=== PATIENT | female | born 1990 | race Caucasian/White ===

== ENCOUNTER 2020-12-26 08:02 | Inpatient (IN) | payer MEDICARE ==
[~2020-12-26] VITALS: Ht 152.4 cm; Wt 104.8 kg
--- NOTE | 2020-12-26 12:36 | EKG ---
[facility] [address] [facility] [place] [address] Signed Accelerated Junctional rhythm Abnormal ECG No previous ECGs available Confirmed by LAMBERTO CRAIN MD ([id number]) on 12/26/2020 12:36:16 PM Electronically Signed By: LAMBERTO CRAIN MD 12/26/20 1236 PATIENT NAME: DIANA ANAYA Electrocardiogram DATE OF : 89 PHYSICIAN: LAMBERTO CRAIN MD REPORT #: [id number] REPORT IS CONFIDENTIAL AND NOT TO BE RELEASED WITHOUT AUTHORIZATION
--- NOTE | 2020-12-26 12:36 | EKG ---
[facility] [address] [place] [address] Signed Sinus tachycardia Otherwise normal ECG When compared with ECG of 26-DEC-2020 08:10, (Unconfirmed) Sinus rhythm has replaced Junctional rhythm Confirmed by LAMBERTO CRAIN MD ([id number]) on 12/26/2020 12:36:23 PM Electronically Signed By: LAMBERTO CRAIN MD 12/26/20 1236 PATIENT NAME: DIANA ANAYA Electrocardiogram DATE OF : [birth year] PHYSICIAN: LAMBERTO CRAIN MD REPORT #: [id number] REPORT IS CONFIDENTIAL AND NOT TO BE RELEASED WITHOUT AUTHORIZATION
--- NOTE | 2020-12-26 13:26 | NUR ---
PATIENT ARRIVED FROM ER VIA STRETCHER WITH THE [employer]IP PACKAGING MACHINE OPERATOR. PATIENT ABLE TO MOVE HERSELF OVER IN THE BED. PATIENT STATES "I LIVE BY [place] AND AM STAYING ON A COUCH". PATIENT SPEAKS IN A VERY LOW TONE AND SPEAKS VERY QUICKLY. PATIENTS THOUGHTS ARE SCATTERED AND WHEN ASKED A QUESTION OFTEN TRAILS OFF ON ANOTHER TOPIC. PATIENT IS ALERT TO SELF AND PLACE. PATIENT STATES SHE WISHES TO GO BY THE NAME BLANE. PATIENT DENIES MOST OF THE HISTORY QUESTIONS. PER MECHELLE PATIENT HAS HX ADHD, AUTISM, AND SCHIZOPHRENIA. PATIENT DENIES HAVING ANYONE WHO STAFF CAN CALL FOR UPDATES. PATIENT ORIENTED TO ROOM. CLEAR LIQUID TRAY ORDERED AND NOW AT THE BEDSIDE. TURNED TV ON PER PATIENT REQUEST. PATIENT ACROSS FROM THE NURSES STATION FOR DIRECT VIZUALIZATION. PATIENT UPDATED TO PLEASE CALL IF SHE NEEDS ANYTHING OR IF SHE NEEDS TO GET UP. PATIENT HAS AN IO ACESS IN HER LEFT TIBIA PER REPORT. SITE IS CDI, BUT IS RED AROUND THE AREA. PATIENT NOW HAS AN ULTRASOUND GUIDED IV IN HER LEFT UPPER ARM PLACED BY ANTONIO CANDELARIA IN THE ER.
--- NOTE | 2020-12-26 14:00 | NUR ---
PATIENT NOTED TO BE STANDING AT THE BEDSIDE. OTHER RN RADHA ENTERED THE ROOM. PATIENT IS STABLE ON HER FEET, BUT WAS STILL CONNECTED TO THE MONITORS. PATIENT REQUESTED TO USE THE CAMMODE AND ASSISTED ONTO IT.
--- NOTE | 2020-12-26 14:15 | NUR ---
PATIENT BACK TO BED AND MEDICATIONS WERE GIVEN. PATIENT WANTS TO TAKE A NAP AT THIS TIME. WILL ALLOW PATIENT TO RET AT THIS TIME.
--- NOTE | 2020-12-26 15:27 | NUR ---
PATIENT RESTING IN BED ON HER SIDE AT THIS TIME. PATIENT DENIES ANY NEEDS. BED ALARM ON FOR PATIENTS SAFETY. PATIENTS CURTAIN OPEN FOR DIRECT VISULIZATION FROM THE NURSES STATION. WILL CONTINUE TO CLOSELY MONTIOR.
--- NOTE | 2020-12-26 15:45 | NUR ---
MD CRAIN STOPPED BY TO CHECK ON PATIENTS. MD NOTIFIED OF VITALS. PATIENT IS RESTING AT THIS TIME. HR REMAINS 120-130'S SINCE ADMISSION. FLUIDS ARE GOING CURRENTLY AND MEDICATIONS WERE GIVEN. NO NEW ORDERS AT THIS TIME. WILL CONTINUE TO CLOSELY MONITOR.
--- NOTE | 2020-12-26 16:45 | NUR ---
THIS RN IN TO WAKE PATIENT AND ASSESS IV SITES. PATIENT HAS BEEN RESITNG FOR THE PAST SEVERAL HOURS. PATIENT DENIES PAIN. ASSESSMENT REMAINS UNCHANGED. CLEAR LIQUID TRAY ORDERED. WILL CONTINUE TO CLOSELY MONTIOR.
--- NOTE | 2020-12-26 18:00 | NUR ---
PATIENT FINISHED CLEAR LIQUID TRAY. CELEBRITY MANAGER IN TO DRAW LABS. PATIENT DENIES ANY OTHER NEEDS AT THIS TIME. WILL CONTINUE TO CLOSELY MONITOR.
--- NOTE | 2020-12-26 19:30 | NUR ---
REPORT RECEIVED FROM PURA CANDELARIA. PT IS RESTING IN BED WITH EYES CLOSED, HR 120'S, RESP EVEN UNLABORED. BED ALARM ON AND IVF INFUSING.
--- NOTE | 2020-12-26 20:15 | NUR ---
IN TO DO ASSESSMENT AND HS MEDS. PT AWAKENS TO ANSWER BRIEF QUESTIONS BUT IS SLEEPY AND KEEPS EYES CLOSED BUT DENIES NEEDS OR PAIN. IVF INFUSING INTO LEFT UPPER ARM, NO SIGNS OF INFLITRATION AT THIS TIME. I/O IN RIGHT TIBIA SALINE LOCKED, AREA AROUND IN SOMEWHAT REDDENED BUT DAY SHIFT RN REPORTS REDNESS HAS BEEN DECREASING. HR REMAINS 120'S, SPO2 92% ON ROOM AIR. LUNGS CLEAR.
--- NOTE | 2020-12-26 23:15 | NUR ---
DR CRAIN ROUNDING ON UNIT, UPDATED ON PT STATUS AND CURRENT VS, NO NEW ORDERS. PT REMAINS SLEEPING, RESP RATE 24-32, RESP EVEN UNLABORED AND HR 120'S. BED ALARM ON.
--- NOTE | 2020-12-27 00:30 | NUR ---
IN TO DO ASSESSMENT, PT CONTINUES TO BE VERY SLEEPY. DENIES NEEDS. BED ALARM ON. IVF CONT TO INFUSE.
--- NOTE | 2020-12-27 03:19 | NUR ---
NEW IV SITE PLACED IN LEFT HAND, PT TOLERATED WELL. REQUESTED JELLO, NO OTHER REQUESTS, DENIES PAIN. ATTEMPTED TO HAVE PT GET UP TO VOID BUT SHE REFUSES AND STATES SHE DOES NOT NEED TO, WANTS TO GO BACK TO SLEEP. WILL TRY AGAIN IN A WHILE.
--- NOTE | 2020-12-27 05:15 | NUR ---
LAB IN TO DRAW AND THEN PT UP TO VOID AT [facility] DESPITE, STATES SHE HAS NO URGE TO VOID BUT WAS ABLE TO VOID 300ML RED URINE, PT ON MENSES. PT IN TO SHOWER AND LINENES CHANGED, TOLERATED SHOWER WELL THEN BACK TO BED. REQUESTING BREAKFAST. ONCE BACK IN BED SHE QUICKLY GOES BACK TO SLEEP. HR NOW DOWN TO 110'S.
--- NOTE | 2020-12-27 08:08 | NUR ---
DR. CRAIN IN ROOM TO SEE PATIENT. CARE OF PATIENT RESUMED BY THIS RN. PT SLEEPING AT THIS TIME AND VERY DROWSY. PT STAYS ASLEEP DURING VISIT WITH DR. CRAIN. PT SNORING. 2 L NC ON PATIENT AND SP02 IS 100% ON THIS. HR 100s. WILL CONTINUE TO MONITOR.
--- NOTE | 2020-12-27 10:15 | NUR ---
PATIENT PUT ON TELE #7. TRANSFER ORDERS IN FOR PATIENT TO TRANSFER TO MED/SURG.
--- NOTE | 2020-12-27 14:36 | NUR ---
v/s and I&Os done fresh water given. no other needs at this time. call light with in reach
--- NOTE | 2020-12-27 14:58 | NUR ---
pt. up in chair. linens changed. room picked up no other needs at this time. call light with in reach
--- NOTE | 2020-12-27 15:06 | NUR ---
PATIENT HELPED UP TO CHAIR AFTER VOIDING INTO BEDSIDE COMMODE. PT CONTINUES ON HER MENSES. PT VOIDED 400 ML AND THIS IS THE FIRST VOID FOR THE DAY. PT IS MORE ALERT AND CONVERSIVE AT THIS TIME. PT ASKED TO STAY UP IN CHAIR UNTIL AFTER DINNER, WHICH SHE AGREED TO. NEW GOWN AND LINENS PROVIDED. NEW TELE STICKERS PLACED ON PATIENT. CONTINUE TO MONITOR.
--- NOTE | 2020-12-27 16:51 | NUR ---
PATIENT HAD MOVED HERSELF BACK INTO BED AFTER SITTING IN CHAIR. PT WAS LAYING ON BED AND SLEEPING ON HER ABDOMEN. PT AWAKENS EASILY AND ASSESSMENT COMPELTE. PT AGREEABLE TO GET BACK INTO CHAIR FOR DINNER. IV SITE IN LEFT UPPER ARM STILL FLUSHING WELL AND DRAWS BACK BLOOD AT THIS TIME. TELE D/C PER DR. ARCHER.
--- NOTE | 2020-12-27 17:30 | NUR ---
PATIENT ATE HER DINNER IN CHAIR AND THEN GETS HERSELF BACK TOB ED. PT VOIDED IN URINAL PRIOR TO GETTING BACK TO BED. IVF CONTINUE AT 125 ML/HR. PT IS RESTING IN BED. CONTINUE TO MONITOR.
--- NOTE | 2020-12-27 19:10 | NUR ---
PT UP ON HER OWN TO BSC, STEADY ON FEET, ASSISTED BACK TO BED AND BED ALARM PLACED.
--- NOTE | 2020-12-27 20:30 | NUR ---
PT SETS OFF BED ALARM DESPITE BEING ASKED TO CALL FOR ASSITANCE UP, VOIDED AND THEN GOT BACK INTO BED. WATER GIVEN PER REQUEST. ASSESSMENT DONE. PT BACK TO SLEEP.
--- NOTE | 2020-12-27 22:30 | NUR ---
PT CONT TO SLEEP, RESP EVEN AND UNLABORED.
--- NOTE | 2020-12-28 | NUR ---
PT CONT TO SLEEP, RESP EVEN AND UNLABORED. BED ALARM ON.
--- NOTE | 2020-12-28 02:11 | NUR ---
PT RESTING WITH EYES CLOSED, RESP EVEN AND UNLABORED AND BED ALARM ON.
--- NOTE | 2020-12-28 05:15 | NUR ---
LAB IN TO DRAW
--- NOTE | 2020-12-28 05:55 | NUR ---
PT CONTINUES TO SLEEP, RESTING WITH EYES CLOSED, RESP EVEN AND UNLABORED.
--- NOTE | 2020-12-28 08:24 | NUR ---
pt. was incontinent in bed. pt. up to bathroom and cleaned up. new gown, bed linens changed. room picked up breakfast given. no other needs at this time. call light within reach
--- NOTE | 2020-12-28 09:05 | NUR ---
Spoke with pt and she is very delayed in response, but does answer questions. She is not aware of how she arrived in [place] or why. States she lives in [place] with her aunt, Marielle Lopez. She wound like to return to her aunt. Attempted to call phone number alberto n by Ebony for her aunt. Phone is disconnected. Looked up aunt on the internet and found she has in July. Ebony looked and and confirmed this is her aunt. Told pt, I am so sorry, but this aunts abituary. She states she has not seen aunt in a year. Discussed where she would like to go now, states she would like to return to [place] as her mom also lived with her aunt. She does not know her mom's cell number. P is being discharged. Will call [facility] for care ride to [place] for pt to reconnect with family.
--- NOTE | 2020-12-28 09:31 | NUR ---
DR. ARCHER IN TO SEE PATIENT AT THIS TIME. PT SLEEPING ON HER STOMACH AND SLOW TO RESPOND, BUT DOES ANSWER QUESTIONS. PLAN OF CARE BEING DISCUSSED. PATIENT TO BE DISCHARGED TODAY.
--- NOTE | 2020-12-28 09:56 | NUR ---
DR. ARCHER HERE TO SEE PATIENT, DISCHARGE INSTRUCTIONS WRITTEN.SITE LEADER HERE TO TALK WITH PATIENT. IVF PATENT.
--- NOTE | 2020-12-28 10:50 | NUR ---
Spoke with [facility] and they state they recently visited with this patient, she did not follow up. Pt was then [facility] and was also admitted to [facility] in June. They do not have any phone numbers for family, but do have a note showing aunt in July.
--- NOTE | 2020-12-28 11:00 | NUR ---
Call from [employer] and they will pick pt up at 11;15 [facility] to [place].
== END 2020-12-28 11:10 | disposition home or self-care (01) | DRG 922 ==
LOC: ED 08:02 → CCU 12:32
PROVIDERS: ADMIT Internal Medicine; ATTEND Internal Medicine
DX: T68.XXXA Hypothermia, initial encounter (principal); G93.41 Metabolic encephalopathy; E87.2 Acidosis; M62.82 Rhabdomyolysis; Z20.822 Contact with and (suspected) exposure to COVID-19; F17.200 Nicotine dependence, unspecified, uncomplicated; F15.10 Other stimulant abuse, uncomplicated; E87.6 Hypokalemia; E83.42 Hypomagnesemia; X31.XXXA Exposure to excessive natural cold, initial encounter; Z88.8 Allergy status to other drugs, medicaments and biological substances
CPT/HCPCS: 36415; 71045; 80048; 80053; 81001; 82010; 82550; 82803; 83615; 83735; 84100; 84484; 84703; 85025; 85610; 85730; 93005; 93010; 99406; C9803; J0295; J1650; J2270; J2405; J3475; J3480; J7121; U0003